=== PATIENT | male | born 1965 | race Native Hawaiian/Other Pacific Islander ===

== ENCOUNTER 2017-01-22 00:52 | Emergency (ER) | payer SELFPAY ==
[2017-01-22 00:55] VITALS: BP 145/90; PULSE 96; RESP 16; TEMP 99; O2SAT 98
== END 2017-01-22 03:05 | disposition left against medical advice (07) ==
LOC: NED 00:52
DX: Z53.21 Procedure and treatment not carried out due to patient leaving prior to being seen by health care provider (principal)
CPT/HCPCS: 99281